=== PATIENT | female | born 1985 | race Caucasian/White ===

== ENCOUNTER 2018-06-29 16:21 | Outpatient (CLI) | payer OTHER ==
[2018-06-29 16:50] LABS: CANNABINOIDS NEGATIVE ng/mL (< 50); METHYLENEDIOXYMETHAMPHETAMINE NEGATIVE ng/mL (<500)
== END 2018-06-29 16:30 ==
LOC: LAB 16:21
PROVIDERS: ATTEND Family Medicine
DX: Z02.82 Encounter for adoption services (principal)
CPT/HCPCS: 36415; 80377; 86703; G0481